=== PATIENT | female | born 1945 | race Hispanic/Latino ===

== ENCOUNTER 2017-08-11 11:14 | Emergency (ER) | payer MEDICARE, OTHER ==
[~2017-08-11] VITALS: Ht 154.9 cm; Wt 64.9 kg
[~2017-08-11 11:14] MED LIST: ACIDOPHILUS1 EAC4 PO; ALDACTONE50 MG PO; ASCORBIC ACID500 MG PO; CARVEDILOL3.125 MG PO; FAMOTIDINE20 MG PO; FUROSEMIDE40 MG PO; IPRAT-ALBUT 0.5-3 ML INH; KLOR-CON 1010 MEQ PO; KLOR-CON20 MEQ; LACTULOSE10 GM/15 M PO; LACTULOSE20 GM/30 M PO; LEVEMIR100 UNIT/1 SC; MECLIZINE HCL12.5 MG PO; NIFEDIPINE ER30 M1 PO; NITROFURANTOIN100 MG PO; NYSTATIN-TRIAMC15 GM TOP; PANTOPRAZOLE SO40 MG PO; PRAVASTATIN SOD40 MG PO; TYLENOL # 31 EA PO; ULTRAM 50MG50 MG PO; VITAMIN D400 UNI1 PO; XIFAXAN550 MG PO
[2017-08-11] MEDS ORDERED: KETOROLAC TROMETHAMINE 30 MG/ML VIAL IV STA (11:59)
[2017-08-11] MEDS ORDERED: DEXAMETHASONE SOD PHOS 10 MG/1 ML VIAL INJ ONE (12:00)
[2017-08-11] MEDS ORDERED: TRIAMCINOLONE ACET 40 MG/ML VIAL IM ONE (12:00)
[2017-08-11] MEDS ORDERED: LIDOCAINE HCL 2% LOCAL 20 ML VIAL INJ ONE ×2 (12:00→12:30)
[2017-08-11 16:41] VITALS: BP 129/71
== END 2017-08-11 16:00 | disposition home or self-care (01) ==
LOC: ER 11:14
DX: M54.41 Lumbago with sciatica, right side (principal); I10 Essential (primary) hypertension; E11.9 Type 2 diabetes mellitus without complications; E78.5 Hyperlipidemia, unspecified; K76.9 Liver disease, unspecified
CPT/HCPCS: 99282; J1100; J1885; J2001; J3301